=== PATIENT | male | born 1995 | race Caucasian/White ===

== ENCOUNTER → 2017-06-02 | Outpatient (CLI) | payer BC ==
--- NOTE | 2017-06-03 11:00 | DI ---
XR WRIST COMPLETE MIN 3VW,06/02/2017 6:08 PM: Clinical History: Left wrist pain. Previous Exam: None at this facility. Findings: 3 views of the left wrist are obtained, and demonstrate lucencies involving the posterior and anterio r margins of the left distal radius. There is no significant displacement. Volar tilt is preserved. T his is only seen on the lateral view and not appreciated on the AP or oblique views. Impression: Lucency through the distal radius worrisome for a nondisplaced distal radial fracture.
== END ==
LOC: RAD 15:15
PROVIDERS: ATTEND Physician Assistant
DX: M25.532 Pain in left wrist (principal); S52.502A Unspecified fracture of the lower end of left radius, initial encounter for closed fracture; V80.919A Animal-rider injured in unspecified transport accident, initial encounter
CPT/HCPCS: 73110